=== PATIENT | female | born 1965 | race Caucasian/White ===

== ENCOUNTER 2021-10-18 16:50 | Emergency (ER) | payer OTHER, SELFPAY ==
[2021-10-18 17:40] LABS: Absolute Lymphocytes (CBC) 1.8 K/uL (0.7-4.9); Hematocrit 44.7 % (36.0-45.0); Lymphocytes % 28.3 % (15.3-44.8); MPV 7.3 fL (7.6-11.3); RBC Red Blood Cell Count 5.33 M/uL (3.86-4.86)
[2021-10-18 17:51] LABS: Urine Blood Trace-lysed (Negative); Urine Glucose Negative (Negative); Urine Protein 1+ (Negative)
[2021-10-18 17:58] LABS: ALT/SGPT 18 U/L (12-78); Albumin 4.4 g/dL (3.4-5.0); Alkaline Phosphatase 78 U/L (45-117); BUN Blood Urea Nitrogen 6 mg/dL (7-18); Bicarbonate 28 mmol/L (21-32); Bilirubin Direct 0.1 mg/dL (0-0.2); Bilirubin Total 0.5 mg/dL (0.2-1.0); Glomerular Filtration Rate 101 ml/min (=/>90); Glucose Level 91 mg/dL (74-106); Protein, Total 7.8 g/dL (6.4-8.2); Sodium Level 143 mmol/L (136-145)
[2021-10-18 17:59] LABS: AST/SGOT 14 U/L (15-37); Potassium 3.6 mmol/L (3.5-5.1)
[2021-10-18 18:11] LABS: Barbiturates NEGATIVE (NEGATIVE); Benzodiazepines NEGATIVE (NEGATIVE); Cocaine NEGATIVE (NEGATIVE); METHAMPHETAM NEGATIVE (NEGATIVE); Methadone NEGATIVE (NEGATIVE); Opiates NEGATIVE (NEGATIVE); Phencyclidine NEGATIVE (NEGATIVE); THC Cannibis NEGATIVE (NEGATIVE)
[2021-10-18] MEDS ORDERED: lisinopriL 20 MG TAB ONE (18:17)
[2021-10-18 19:25] LABS: Urine Bacteria >50 /HPF (<20); Urine RBC <5 /HPF (NONE SEEN)
[2021-10-18] MEDS ORDERED: NITROFURAN MACRO 100 MG CAP PO ONE (20:30)
--- NOTE | 2021-10-18 20:34 | ER ---
Nurse's Notes [facility] Name: Angela Clemons Age: 56 yrs Sex: Female : 1965 Arrival Date: 10/18/2021 Time: 16:55 Bed 16 Private MD: Diagnosis: Suicidal ideations;Other depressive episodes;UTI/ Urinary tract infection, site not specified Presentation: 10/18 16:56 Chief complaint: EMS states: Suicidal ideations that began today. Pt denies previous ss SI. Coronavirus screen: Client denies travel out of the [place] in the last 14 days. Ebola Screen: Patient denies exposure to infectious person. Patient denies travel to an Ebola-affected area in the 21 days before illness onset. Initial Sepsis Screen: Does the patient meet any 2 criteria? No. Patient's initial sepsis screen is negative. Does the patient have a suspected source of infection? No. Patient's initial sepsis screen is negative. Risk Assessment: Do you want to hurt yourself or someone else? Patient reports no desire to harm self or others. Onset of symptoms was October 18, 2021. 16:56 Method Of Arrival: EMS: [facility] 16:56 Acuity: JAMES 2 ss Triage Assessment: 17:00 General: Appears in no apparent distress. slender, Behavior is calm, cooperative, tw2 appropriate for age. Pain: Denies pain. EENT: No signs and/or symptoms were reported regarding the EENT system. Neuro: Level of Consciousness is awake, alert, obeys commands, Oriented to person, place, time, situation. Cardiovascular: Capillary refill. Respiratory: Airway is patent Respiratory effort is even, unlabored, Respiratory pattern is regular, symmetrical. GI: No signs and/or symptoms were reported involving the gastrointestinal system. Abdomen is flat. : No signs and/or symptoms were reported regarding the genitourinary system. Musculoskeletal: Range of motion: intact in all extremities. Historical: - Allergies: 17:40 No Known Allergies; tw2 - Home Meds: 17:40 None [Active]; tw2 - PMHx: 17:40 None; tw2 - PSHx: 17:40 None; tw2 - Immunization history:: Adult Immunizations. - Social history:: Smoking status: . Screenin:39 Abuse screen: Denies threats or abuse. Nutritional screening: No deficits noted. tw2 Tuberculosis screening: No symptoms or risk factors identified. Fall Risk None identified. Assessment: 17:00 Reassessment: see triage assessment. tw2 17:00 Reassessment: sitter remains at bedside throughout shift. tw2 19:15 Reassessment: Patient appears in no apparent distress at this time. Patient is alert, ke1 oriented x 3, equal unlabored respirations, skin warm/dry/pink. 21:00 Reassessment: Patient appears in no apparent distress at this time. No changes from ke1 previously documented assessment. Patient is alert, oriented x 3, equal unlabored respirations, skin warm/dry/pink. 23:00 Reassessment: Patient appears in no apparent distress at this time. No changes from ke1 previously documented assessment. Lying in bed eyes closed. General: Behavior is calm, cooperative. 10/19 01:00 General: Appears in no apparent distress. comfortable, Behavior is calm, cooperative. ke1 04:46 Reassessment: No changes from previously documented assessment. General: Behavior is ke1 sleeping. 07:17 Reassessment: resting comfortably in bed. sitter at bedside. SI paperwork completed and jd3 pt is in the low suicide risk at this time. General: Appears in no apparent distress. comfortable, Behavior is calm, cooperative, appropriate for age. Pain: Denies pain. Neuro: San Agitation-Sedation Scale (RASS): 0 - Alert and Calm Level of Consciousness is awake, alert, obeys commands, Oriented to person, place, time, situation. Cardiovascular: Denies chest pain, Capillary refill < 3 seconds Patient's skin is warm and dry. Respiratory: Airway is patent Respiratory effort is even, unlabored, Respiratory pattern is regular, symmetrical, Denies cough, shortness of breath. GI: Abdomen is round non-distended, Patient currently denies diarrhea, nausea, vomiting. : No signs and/or symptoms were reported regarding the genitourinary system. EENT: No signs and/or symptoms were reported regarding the EENT system. Derm: Skin is intact, Skin is dry, Skin is normal, Skin temperature is warm. Musculoskeletal: Circulation, motion, and sensation intact. Range of motion: intact in all extremities. 08:00 Reassessment: Patient and/or family updated on plan of care and expected duration. Pain jd3 level reassessed. Patient is alert, oriented x 3, equal unlabored respirations, skin warm/dry/pink. resting in bed with sitter at beside. 09:00 Reassessment: No changes from previously documented assessment. Patient and/or family jd3 updated on plan of care and expected duration. Pain level reassessed. Patient is alert, oriented x 3, equal unlabored respirations, skin warm/dry/pink. awaiting meal tray. 10:00 Reassessment: Patient appears in no apparent distress at this time. Patient and/or jd3 family updated on plan of care and expected duration. Pain level reassessed. Patient is alert, oriented x 3, equal unlabored respirations, skin warm/dry/pink. sitting up in bed eating breakfast. sitter at beside adjusting TV channel for pt. 11:00 Reassessment: Patient appears in no apparent distress at this time. Patient and/or jd3 family updated on plan of care and expected duration. Pain level reassessed. Patient is alert, oriented x 3, equal unlabored respirations, skin warm/dry/pink. pt lying in bed. second warm blanket provided to pt per pt's request. sitter at bedside. 12:00 Reassessment: Patient appears in no apparent distress at this time. No changes from jd3 previously documented assessment. Patient and/or family updated on plan of care and expected duration. Pain level reassessed. Patient is alert, oriented x 3, equal unlabored respirations, skin warm/dry/pink. sitting up and eating lunch. 12:45 Reassessment: [facility] at bedside. jd3 13:00 Reassessment: Patient appears in no apparent distress at this time. No changes from jd3 previously documented assessment. Patient and/or family updated on plan of care and expected duration. Pain level reassessed. Patient is alert, oriented x 3, equal unlabored respirations, skin warm/dry/pink. 14:00 Reassessment: Patient and/or family updated on plan of care and expected duration. Pain jd3 level reassessed. Patient is alert, oriented x 3, equal unlabored respirations, skin warm/dry/pink. resting in bed with sitter at beside. 14:06 Reassessment: nurse to nurse given to Anca at [facility]. jd3 15:00 Reassessment: No changes from previously documented assessment. Patient and/or family [facility] updated on plan of care and expected duration. Pain level reassessed. Patient is alert, oriented x 3, equal unlabored respirations, skin warm/dry/pink. 15:41 Reassessment: pt signing transfer from. j 16:00 Reassessment: Patient appears in no apparent distress at this time. Patient and/or jd3 family updated on plan of care and expected duration. Pain level reassessed. Patient is alert, oriented x 3, equal unlabored respirations, skin warm/dry/pink. awaiting EMS for transfer. 16:41 Reassessment: Patient appears in no apparent distress at this time. Patient and/or jd3 family updated on plan of care and expected duration. Pain level reassessed. Patient is alert, oriented x 3, equal unlabored respirations, skin warm/dry/pink. report given to [facility] for pt transfer to [facility]. Psych: 10/18 17:00 [place] Suicide Severity Screening: In the past month, have you wished you were tw2 or wished you could go to sleep and not wake up? Patient responds "yes." Based off the client's responses additional C-SSRS screening is required. "In the past month, have you actually had any thoughts of killing yourself?" Patient responds "yes." "In your lifetime, have you ever done anything, started to do anything, or prepared to do anything to end your life?" Patient responds "no.". Subjective: Patient's mood is sad, Hallucinations are denied Having thoughts of suicide. Plan for suicide is "i would just go lay on the railroad tracks". Objective: Patient is cooperative, Speech is normal, Affect is blunted. Interventions: Removed personal items and placed in bag. Patient placed in hospital gown. Searched person for dangerous items. Interventions: Belonging list filled out. Safety Checks: Personal items have been removed. Door is open. No visitors are present at this time. sitter remains at bedside at this time and throughout shift. Pt denies substance abuse "last used 6 months ago". Commitment: Patient will be a voluntary commitment. 17:42 Interventions: Urine collected and sent for urine drug test. tw2 Vital Signs: 17:29 BP 200 / 125; Pulse 74; Resp 16; Temp 98.8(O); Pulse Ox 100% ; Weight 52.16 kg; Height tw2 5 ft. 5 in. (165.10 cm); 20:21 BP 184 / 98; Pulse 77; Resp 17; Pulse Ox 98% on R/A; ke1 21:16 BP 160 / 96; Pulse 68; Resp 17; Pulse Ox 100% on R/A; ke1 22:06 BP 157 / 99; Pulse 61; Resp 16; Pulse Ox 98% on R/A; ke1 06 01:31 BP 152 / 93; Pulse 60; Resp 16; Pulse Ox 97% on R/A; ke1 03:08 BP 124 / 74; Pulse 64; Resp 17; Pulse Ox 99% ; mw1 05:30 BP 140 / 88; Pulse 61; Resp 17; Pulse Ox 98% ; mw1 10/18 17:29 Body Mass Index 19.14 (52.16 kg, 165.10 cm) tw2 10/18 17:29 provider notified. tw2 ED Course: 16:55 Patient arrived in ED. ss 16:56 Najma Goodman FNP-C is PHCP. kb 16:56 Randall Forrester MD is Attending Physician. kb 16:56 Arm band placed on right wrist. ss 16:58 Triage completed. ss 17:31 Initial lab(s) drawn, by ED staff, sent to lab. EKG done, by ED staff, reviewed by loly SCOTT. 17:32 Patient has correct armband on for positive identification. Placed in gown. Bed in low mh5 position. Call light in reach. Warm blanket given. Pulse ox on. NIBP on. 17:35 Shayla Mayfield RN is Primary Nurse. tw2 18:06 COVID-19 SARS RT PCR (Document "Date of Onset" if Symptomatic) Sent. 5 18:06 Salicylate Sent. 5 18:06 Urine Drug Screen Sent. 5 18:07 Diet: Patient given a regular meal tray. 5 19:05 Report given to KEYSHAWN Batista. tw2 20:31 Attending Physician role handed off by Randall Forrester MD rn 20:31 Moise Orellana MD is Attending Physician. rn 21:00 No apparent distress. Resting quietly. ke1 22:24 Transfers initiated via fax. 4 06/10 05:09 transfer paperwork initiated via fax. sp 07:23 No provider procedures requiring assistance completed. IV is patent, is intact, with jd3 good blood return, 20 G noted to the left AC. 12:11 called the [facility] crisis line/ Celia will page out the screener front desk host eb to come evaluate the patient. 12:28 Attending Physician role handed off by Moise Orellana MD cha 12:28 Jorje Cortes MD is Attending Physician. bradley 14:02 connected Nicole Keene from the [facility] with Sim Keene for patient transfer eb consultation. 14:[address] Cortez the psychiatrist front desk host for [facility] for patient transfer eb consultation. 15:36 administrative approval given by Karissa Jones/ patient has been accepted to [facility]. 16:42 IV discontinued, intact, bleeding controlled, No redness/swelling at site. Pressure jd3 dressing applied. Administered Medications: 10/18 18:12 Drug: Lisinopril 20 mg Route: PO; tw2 20:44 Drug: Macrobid (nitrofurantoin) 100 mg Route: PO; ke1 10/19 01:32 Follow up: Response: No adverse reaction ke1 13:05 Drug: Rocephin (cefTRIAXone) 1 grams Route: IV; Rate: per protocol; Site: left jd3 antecubital; 13:49 Follow up: Response: No adverse reaction; IV Status: Completed infusion jd3 Medication: 10/18 17:43 VIS not applicable for this client. tw2 Outcome: 20:33 ER care complete, transfer ordered by . keyshawn 10/19 16:42 Transferred by ground EMS to other acute care facility: [facility] . Transfer form jd3 completed. X-rays sent w/ patient. Condition: stable Instructed on the need for transfer, Demonstrated understanding of instructions. 16:48 Patient left the ED. jd3 Signatures: Najma Goodman, MEDICINE WORKER-C MEDICINE WORKER-Ckb Jorje Cortes MD MD cha Pinkerton, Shawna sp Nieto, Roman, MD MD rn Smirch, Shelby, RN RN ss Wise, Tara, RN RN 2 Ting Pulido [facility] Dragan Atkins 1 Cruzito Lion RN RN jd3 Karena Mac Mackenzie 4 Tom Cook, RN RN ke1 Corrections: (The following items were deleted from the chart) 10/18 17:39 17:29 BP 200 / 125; Pulse 74bpm; Resp 16bpm; Pulse Ox 100%; Temp 98.8F Oral; 52.16 kg; tw2 Height 5 ft. 5 in.; BMI: 19.1; mh5 10/19 07:43 07:17 Reassessment: resting comfortably in bed. sitter at bedside. jd3 jd3 15:41 14:06 Reassessment: nurse to nurse given to Olimpia at [facility] jd3 jd3
--- NOTE | 2021-10-18 20:34 | EDPHYS ---
Physician Documentation [facility] Name: Angela Clemons Age: 56 yrs Sex: Female : 1965 Arrival Date: 10/18/2021 Time: 16:55 Bed 16 Private MD: ED Physician Jorje Cortes HPI: 10/18 18:23 This 56 yrs old Female presents to ER via EMS with complaints of Suicidal kb Ideation. 18:23 The patient presents to the emergency department with depression, suicide ideation, and kb the patient has a plan, lay on train tracks. Onset: The symptoms/episode began/occurred today. Past psychiatric history: Prior diagnosis: no previous psychiatric diagnosis known. Associated signs and symptoms: Pertinent positives; depression, suicide ideation. Severity of symptoms: At their worst the symptoms were moderate in the emergency department the symptoms are unchanged. The patient has not experienced similar symptoms in the past. The patient has not recently seen a physician. Pt reports she has had a bad day and doesn't want to live anymore. Plan is to lay on train tracks and get run over. Denies having suicidal ideations in the past. Historical: - Allergies: 17:40 No Known Allergies; tw2 - Home Meds: 17:40 None [Active]; tw2 - PMHx: 17:40 None; tw2 - PSHx: 17:40 None; tw2 - Immunization history:: Adult Immunizations. - Social history:: Smoking status: . ROS: 18:21 Constitutional: Negative for fever, chills, and weight loss. kb 18:21 Psych: Positive for depression, suicidal ideation. 18:21 All other systems are negative. Exam: 17:30 Constitutional: This is a well developed, well nourished patient who is awake, alert, kb and in no acute distress. Head/Face: Normocephalic, atraumatic. ENT: Moist Mucous membranes Cardiovascular: Regular rate and rhythm with a normal S1 and S2. No gallops, murmurs, or rubs. No pulse deficits. Respiratory: Respirations even and unlabored. No increased work of breathing. Talking in full sentences Abdomen/GI: Soft, non-tender. No distention Skin: Warm, dry with normal turgor. Normal color. MS/ Extremity: Pulses equal, no cyanosis. Neurovascular intact. Full, normal range of motion. Neuro: Awake and alert, GCS 15, oriented to person, place, time, and situation. Moves all extremities. Normal gait. 17:30 ECG was reviewed by the Attending Physician. 17:30 Psych: Behavior/mood is cooperative, depressed, Affect is calm, Oriented to person, place, time, Patient having thoughts of suicide. Plan for suicide is lay on train tracks Vital Signs: 17:29 BP 200 / 125; Pulse 74; Resp 16; Temp 98.8(O); Pulse Ox 100% ; Weight 52.16 kg; Height tw2 5 ft. 5 in. (165.10 cm); 20:21 BP 184 / 98; Pulse 77; Resp 17; Pulse Ox 98% on R/A; ke1 21:16 BP 160 / 96; Pulse 68; Resp 17; Pulse Ox 100% on R/A; ke1 22:06 BP 157 / 99; Pulse 61; Resp 16; Pulse Ox 98% on R/A; ke1 10/19 01:31 BP 152 / 93; Pulse 60; Resp 16; Pulse Ox 97% on R/A; ke1 03:08 BP 124 / 74; Pulse 64; Resp 17; Pulse Ox 99% ; mw1 05:30 BP 140 / 88; Pulse 61; Resp 17; Pulse Ox 98% ; mw1 10/18 17:29 Body Mass Index 19.14 (52.16 kg, 165.10 cm) tw2 10/18 17:29 provider notified. tw2 MDM: 16:56 Patient medically screened. kb 17:31 Data reviewed: vital signs, nurses notes. Data interpreted: Pulse oximetry: on room air kb is 100 %. Interpretation: normal. 20:10 Transition of care: After a detail discussion of the patient's case, care is kb transferred to Moise Orellana MD. 20:31 Differential diagnosis: suicidal ideation. Counseling: I had a detailed discussion with rn the patient and/or guardian regarding: the historical points, exam findings, and any diagnostic results supporting the discharge/admit diagnosis, lab results, radiology results, the need to transfer to another facility. Response to treatment: the patient's symptoms have mildly improved after treatment, and as a result, I will admit patient. ED course: Pt suicidal, voluntary, will organize transfer to psychiatric facility for further eval and care.. 06/09 16:59 Order name: Acetaminophen; Complete Time: 18:04 kb / 16:59 Order name: Basic Metabolic Panel; Complete Time: 18:04 kb / 16:59 Order name: CBC with Diff; Complete Time: 17:46 kb 10/18 16:59 Order name: ETOH Level; Complete Time: 18:04 kb 10/18 16:59 Order name: Hepatic Function; Complete Time: 18:04 kb 10/18 16:59 Order name: PT-INR; Complete Time: 17:46 kb 10/18 16:59 Order name: Ptt, Activated; Complete Time: 17:46 kb 10/18 16:59 Order name: Salicylate; Complete Time: 18:20 kb 10/18 16:59 Order name: Urine Drug Screen; Complete Time: 18:14 kb 10/18 16:59 Order name: COVID-19 SARS RT PCR (Document "Date of Onset" if Symptomatic); Complete kb Time: 18:35 06/ 17:51 Order name: Urine Dipstick-Ancillary; Complete Time: 17:56 EDMS 10/18 18:05 Order name: Urine Microscopic Only; Complete Time: 19:35 kb 10/18 18:09 Order name: Urine --Ancillary (enter results); Complete Time: 12:29 dh3 / 19:28 Order name: Urine Culture EDSD / 16:59 Order name: EKG; Complete Time: 17:01 kb 10/18 16:59 Order name: EKG - Nurse/Tech; Complete Time: 17:40 kb 10/18 16:59 Order name: IV Saline Lock; Complete Time: 17:16 kb 10/18 16:59 Order name: Labs collected and sent; Complete Time: 17:16 kb 10/18 16:59 Order name: Suicide Precautions; Complete Time: 17:40 kb 10/18 16:59 Order name: Suicide Screening ([place]); Complete Time: 17:40 kb 10/18 16:59 Order name: Urine Dipstick-Ancillary (obtain specimen); Complete Time: 17:45 kb 10/18 17:14 Order name: Diet Finger Food; Complete Time: 17:15 mh5 10/18 19:36 Order name: Vital Signs; Complete Time: 20:44 kb 10/19 05:37 Order name: Diet Finger Food; Complete Time: 05:38 ke1 10/19 08:27 Order name: Diet Finger Food; Complete Time: 08:28 eb 10/19 11:40 Order name: Diet Finger Food; Complete Time: 11:41 mh5 EC:30 Rate is 72 beats/min. Rhythm is regular. QRS [place] is Normal. NV interval is normal at kb 176 msec. QRS interval is normal at 98 msec. QT interval is normal at 453 msec. Administered Medications: 18:12 Drug: Lisinopril 20 mg Route: PO; tw2 20:44 Drug: Macrobid (nitrofurantoin) 100 mg Route: PO; ke10/19 01:32 Follow up: Response: No adverse reaction ke 13:05 Drug: Rocephin (cefTRIAXone) 1 grams Route: IV; Rate: per protocol; Site: left jd3 antecubital; 13:49 Follow up: Response: No adverse reaction; IV Status: Completed infusion jd3 Disposition: 12:30 Co-signature as Attending Physician, Jorje Cortes MD I agree with the assessment and bradley plan of care. Disposition Summary: 10/18/21 20:33 Transfer Ordered Transfer Location: [facility] Facility rn Reason: Higher level of care rn Condition: Stable rn Problem: new rn Symptoms: have improved rn Accepting Physician: Dr. Cortez/ [facility](10/19/21 16:48) jmiguel angel Diagnosis - Suicidal ideations rn - Other depressive episodes bradley - UTI/ Urinary tract infection, site not specified bradley Forms: - Medication Reconciliation Form rn - SBAR form rn Signatures: Dispatcher [employer] Najma Hummel, NARCISO-C MANAGING DIRECTOR ATLAS-Jorje Mckeon MD MD cha Nieto, Roman, MD MD rn Wise, Tara, RN RN tw2 Cruzito Lion RN RN jd3 Karena Mac Kouassi RN RN ke1 Corrections: (The following items were deleted from the chart) 12:31 10/18 20:33 Dr. ailyn huerta 10/19 14:25 12:31 Dr. huerta 16:48 14:25 Dr. Cortez/ [facility] eb jd3
--- NOTE | 2021-10-19 06:16 | EKG ---
Test Date: 2021-10-18 Test Time: 17:22:56 Pastry Sous Chef: ESTER MEASUREMENT RESULTS: Intervals: Rate: 72 SD: 176 QRSD: 98 QT: 414 QTc: 453 [place]: P: 50 SD: 176 QRS: 69 T: 61 INTERPRETIVE STATEMENTS: Normal sinus rhythm Nonspecific ST abnormality Abnormal ECG No previous ECG available for comparison Electronically Signed On 10-19-21 06:16:06 CDT by Td Bazan
[2021-10-19] MEDS ORDERED: NA CHLORIDE 0.9% 50 ML ONE (12:52)
[2021-10-19] MEDS ORDERED: CEFTRIAXONE 1000 MG/VIAL ONE (12:52)
[2021-10-19 16:52] VITALS: TEMP 98.8
[2021-10-19 17:04] VITALS: BP 140/88; O2SAT 98
== END 2021-10-19 16:48 ==
LOC: ER 16:50
DX: R45.851 Suicidal ideations (principal); F32.89 Other specified depressive episodes; N39.0 Urinary tract infection, site not specified; Z20.822 Contact with and (suspected) exposure to COVID-19
CPT/HCPCS: 36415; 80048; 80076; 80307; 80320; 80329; 81003; 81015; 81025; 85025; 85610; 85730; 87077; 87086; 87088; 87186; 93005; 96365; 99285; U0003